=== PATIENT | female | born 1995 | race African-American/Black ===

== ENCOUNTER 2021-05-28 15:11 | Emergency (ER) | payer SELFPAY ==
[~2021-05-28] VITALS: Ht 182.9 cm; Wt 70.0 kg
[2021-05-28] MEDS ORDERED: ACETAMINOPHEN 325MG TABLET PO ONE (16:45)
[2021-05-28] MEDS ORDERED: IBUPROFEN 600MG TABLET PO ONE (17:30)
[2021-05-28] MEDS ORDERED: KETOROLAC 60MG/2ML VIAL IM ONE (18:00)
[2021-05-28 18:45] VITALS: BP 128/74
== END 2021-05-28 18:45 | disposition home or self-care (01) ==
LOC: ER 15:11
DX: R51.9 Headache, unspecified (principal)
CPT/HCPCS: 73100; 73560; 96372; 99284; J1885